=== PATIENT | male | born 1940 | race Caucasian/White ===

== ENCOUNTER 2017-03-15 16:41 | Emergency (ER) | payer MEDICARE, OTHER ==
[2017-03-15 18:03] VITALS: BP 141/72
[2017-03-15] MEDS ORDERED: Diphtheria/Tetanus Toxoids,Adult (Td) 0.5 ML SDV IM ONE (18:40)
[2017-03-15] MEDS ORDERED: Diphtheria,Pertussis(Acell),Tetanus Vaccine 0.5 ML SDV ONE (18:42)
[2017-03-15] MEDS ORDERED: Bacitracin Oint 1 GM U/D Packet ONE (18:42)
--- NOTE | 2017-03-15 19:11 | EDM.PDOC ---
ED HPI GENERAL MEDICAL PROBLEM - General Chief Complaint: Laceration Stated Complaint: CUT ON LT HAND Time Seen by Provider: 03/15/17 18:16 Source of Information: Reports: Patient History Limitations: Reports: No Limitations - History of Present Illness INITIAL COMMENTS - FREE TEXT/NARRATIVE: This gentleman was [place] in the hand [place] the which did not catch it hit him on the over the MCP joint of the left middle finger. He said he could see something white inside he thinks it went all the way down to the bone. That happened just prior to arrival. His last tetanus was about 5 years ago may be of more. - Related Data Allergies Allergy/AdvReac Type Severity Reaction Status Date / Time No Known Allergies Allergy Verified 03/15/17 18:11 Home Meds: Home Meds Metoprolol Tartrate [Lopressor] 03/15/17 [History] atorvaSTATin [Lipitor] 03/15/17 [History] Past Medical History - Past Surgical History HEENT Surgical History: Reports: Tonsillectomy Cardiovascular Surgical History: Reports: Coronary Artery Stent Social & Family History - Tobacco Use Smoking Status *Q: Never Smoker ED ROS GENERAL - Review of Systems Review Of Systems: ROS reveals no pertinent complaints other than HPI. ED EXAM, SKIN/RASH Exam: See Below Exam Limited By: No Limitations General Appearance: Alert, WD/WN, No Apparent Distress Extremities: Other (There is a laceration to the dorsum of the hand over MCP joint of the left fifth finger. It's linear in the midline and it's actually a flap I feel that the flap and see down into the web space between the MCP joints of the index and middle fingers. The joint capsule and tendons were not affected. He has good range of motion of the fingers there's some mild swelling over the MCP joint. Neurovascular tendon all intact. It's a clean wound. The laceration was 2.5 cm long.) Neurological: No Motor/Sensory Deficits Course - Vital Signs Last Recorded V/S: Last Vital Signs Temp 36.0 C 03/15/17 18:18 Pulse 50 L 03/15/17 18:18 Resp 20 03/15/17 18:18 BP 141/72 H 03/15/17 18:18 Pulse Ox 99 03/15/17 18:18 - Orders/Labs/Meds Orders: Active Orders 24 hr Category Date Time Status Vaccines to be Administered [RC] PER UNIT ROUTINE Care 03/15/17 18:41 Ordered Meds: Medications Discontinued Medications Generic Name Dose Route Start Last Admin Trade Name Latasha PRN Reason Stop Dose Admin Bacitracin Confirm 03/15/17 18:42 03/15/17 18:48 Bacitracin Oint 1 Gm Administered 03/15/17 18:43 1 dose Dose Administration 1 dose .ROUTE .STK-MED ONE Diphtheria/Tetanus/Acell Pertussis Confirm 03/15/17 18:42 03/15/17 18:48 Adacel Administered 03/15/17 18:43 0.5 ml Dose Administration 0.5 ml .ROUTE .STK-MED ONE Lidocaine HCl 5 ml 03/15/17 18:36 03/15/17 18:48 Xylocaine-Mpf 1% INJECT 03/15/17 18:37 5 ml ONETIME ONE Administration Tetanus/Diphtheria Toxoids 0.5 ml 03/15/17 18:40 Tenivac IM 03/15/17 18:41 .ONCE ONE - Re-Assessments/Exams Free Text/Narrative Re-Assessment/Exam: 03/15/17 19:09 Procedure: Laceration repair The wound was injected with approximately 3 mL of 1% plain lidocaine. The surrounding area was then scrubbed with Hibiclens solution. The flap was lifted and the area was copiously irrigated with normal saline. The wound was then closed with a running 5-0 nylon suture getting a good cosmetic repair. antibiotic ointment and a sterile dressing were then applied. He received a tetanus immunization also. Departure - Departure Time of Disposition: 19:11 Disposition: Home, Self-Care 01 Condition: fair Clinical Impression: Laceration of left hand - Discharge Information Forms: ED Department Discharge Additional Instructions: Remove the dressing in 24 hours. Wash gently with soap and water apply antibiotic ointment and cover with a dressing. Change dressings daily and watch for signs of infection see your Dr. in 10 days for suture removal. - My Orders Last 24 Hours: My Active Orders 03/15/17 18:41 Vaccines to be Administered [RC] PER UNIT ROUTINE - Assessment/Plan Last 24 Hours: My Active Orders 03/15/17 18:41 Vaccines to be Administered [RC] PER UNIT ROUTINE
== END 2017-03-15 19:20 | disposition home or self-care (01) ==
LOC: JP.ED 16:41
DX: S61.412A Laceration without foreign body of left hand, initial encounter (principal); Z23 Encounter for immunization; Z95.5 Presence of coronary angioplasty implant and graft; Z98.890 Other specified postprocedural states; W22.8XXA Striking against or struck by other objects, initial encounter
CPT/HCPCS: 12001; 90471; 90715; 99282-25